=== PATIENT | female | born 1950 | race Caucasian/White ===

== ENCOUNTER 2018-08-21 14:16 | Inpatient (IN) | payer OTHER ==
[~2018-08-21 14:16] MED LIST: FENOFIBRATE 145 MG TAB PO
[2018-08-21 14:47] LABS: ADD MAN DIFF? NO
[2018-08-21 14:49] LABS: BASOPHIL # 0.1 10^3/ul (0.0-0.1); BASOPHILS % 0.6 % (0.0-2.0); EOSINOPHILS % 0.2 % (0.0-7.0); HEMATOCRIT 40.2 % (37.0-47.0); HEMOGLOBIN 13.8 g/dl (12.0-16.0); LYMPHOCYTES # 0.8 10^3/ul (0.8-2.9); LYMPHOCYTES % 9.3 % (15.0-51.0); MEAN CORPUSCULAR HEMOGLOBIN 29.9 pg (29.0-33.0); MEAN CORPUSCULAR HGB CONC 34.3 g/dl (32.0-37.0); MEAN PLATELET VOLUME 10.2 fl (7.4-10.4); MONOCYTE # 0.1 10^3/ul (0.3-0.9); MONOCYTES % 1.7 % (0.0-11.0); NEUTROPHIL # 7.3 10^3/ul (1.6-7.5); NEUTROPHILS % 87.8 % (39.0-77.0); PLATELET COUNT 281 10^3/UL (140-415); RED BLOOD COUNT 4.62 10^6/ul (4.20-5.40); RED CELL DISTRIBUTION WIDTH 12.1 % (11.5-14.5)
[2018-08-21 14:49] LABS: WHITE BLOOD COUNT 8.3 10^3/ul (4.8-10.8)
[2018-08-21] MEDS: SODIUM CHLORIDE 0.9% 1L BAG IV* (14:51)
[2018-08-21] MEDS: CEFEPIME 2GM/50 ML (PMX) 50 ML IVPB (15:01)
[2018-08-21] MEDS: ACETAMINOPHEN 325 MG TAB PO (15:01)
[2018-08-21 15:08] LABS: INR 0.94; PROTIME 12.7 Sec (11.9-14.9)
[2018-08-21 15:09] LABS: PARTIAL THROMBOPLASTIN TIME 44.9 Sec (23.0-35.0)
[2018-08-21 15:14] LABS: LIPASE 163 U/L (23-300)
[2018-08-21 15:14] LABS: ALANINE AMINOTRANSFERASE 26 IU/L (13-69); ALBUMIN 4.7 g/dl (3.3-4.9); ALBUMIN/GLOBULIN RATIO 1.27; ALKALINE PHOSPHATASE 97 IU/L (42-121); ANION GAP 19 (5-13); ASPARTATE AMINO TRANSFERASE 45 IU/L (15-46); BILIRUBIN,INDIRECT 0.4 mg/dl (0-1.1); BILIRUBIN,TOTAL 0.4 mg/dl (0.2-1.3); BLOOD UREA NITROGEN 12 mg/dl (7-20); CALCIUM 10.8 mg/dl (8.4-10.2); CARBON DIOXIDE 21 mmol/L (21-31); CHLORIDE 95 mmol/L (97-110); CREATININE 0.79 mg/dl (0.44-1.00); Estimated GFR > 60 mL/min (>60); GLUCOSE 269 mg/dl (70-220); POTASSIUM 3.7 mmol/L (3.5-5.1); SODIUM 135 mmol/L (135-144); TOTAL PROTEIN 8.4 g/dl (6.1-8.1)
[2018-08-21 15:24] LABS: TROPONIN-I < 0.012 ng/ml (0.000-0.120)
[2018-08-21 15:41] LABS: ADD UMIC YES; UR ASCORBIC ACID 40 mg/dL (NEGATIVE); UR BACTERIA FEW /HPF (NONE SEEN); UR BILIRUBIN (Dip) NEGATIVE (NEGATIVE); UR BLOOD (Dip) NEGATIVE (NEGATIVE); UR CLARITY SLIGHTLY CLOUDY (CLEAR); UR COLOR YELLOW (YELLOW); UR GLUCOSE (Dip) 2+ mg/dL (NEGATIVE); UR KETONES (Dip) TRACE mg/dL (NEGATIVE); UR LEUKOCYTE ESTERASE (Dip) 2+ Leu/ul (NEGATIVE); UR NITRITE (Dip) NEGATIVE (NEGATIVE); UR RBC 6 /HPF (0-5); UR SPECIFIC GRAVITY (Dip) 1.014 (1.003-1.030); UR TOTAL PROTEIN (Dip) 1+ mg/dl (NEGATIVE); UR UROBILINOGEN (Dip) NEGATIVE (NEGATIVE); UR WBC 93 /HPF (0-5)
[2018-08-21] MEDS: VANCOMYCIN 1 GM (PMX) 250 ML IVPB (15:46)
[2018-08-21] MEDS ORDERED: DEXTROSE 50% 50 ML SYRINGE IV ×2 (16:30)
[2018-08-21] MEDS ORDERED: GLUCAGON 1 MG INJ IM (16:30)
[2018-08-21] MEDS ORDERED: ONDANSETRON 4 MG INJ IV ×2 (16:30)
[2018-08-21] MEDS ORDERED: GLUCOSE GEL 15 GRAM TUBE BUCCAL (16:30)
[2018-08-21] MEDS ORDERED: NITROGLYCERIN (SL) 0.4 MG TAB SL (16:30)
[2018-08-21] MEDS ORDERED: LORAZEPAM 2 MG INJ IV (16:30)
[2018-08-21] MEDS ORDERED: GLUCOSE GEL 15 GRAM TUBE PO ×2 (16:30)
[2018-08-21] MEDS ORDERED: NACL 0.9% 3 ML SYG IV (16:30)
[2018-08-21] MEDS ORDERED: ACETAMINOPHEN 325 MG TAB PO ×2 (16:30)
[2018-08-21] MEDS ORDERED: hydrALAzine 20 MG INJ IV (16:30)
[2018-08-21] MEDS ORDERED: DOCUSATE SODIUM 100 MG CAP PO (16:30)
[2018-08-21] MEDS ORDERED: ALBUTEROL/IPRATROPIUM (NEB) 3 ML AMP HHN (16:30)
[2018-08-21 17:56] LABS: LACTIC ACID 3.1 mmol/L (0.5-2.0)
[2018-08-21 20:26] LABS: FREE T4 (FREE THYROXINE) 1.58 ng/dl (0.78-2.44)
[2018-08-21] MEDS: SOD CHLORIDE 0.9% 1,000 ML IV (22:21)
[2018-08-21] MEDS: HEPARIN 5,000 UNIT/1 ML VIAL SC (22:23)
[2018-08-21] MEDS: INSULIN ASPART [NOVOLOG] 3 ML PEN SC (23:22)
[2018-08-21 23:29] LABS: LACTIC ACID 2.1 mmol/L (0.5-2.0)
[2018-08-22 01:51] LABS: LACTIC ACID 1.7 mmol/L (0.5-2.0)
[2018-08-22] MEDS: CEFEPIME 2GM/50 ML (PMX) 50 ML IVPB ×3 (01:54→21:26)
[2018-08-22] MEDS: INSULIN ASPART [NOVOLOG] 3 ML PEN SC ×6 (02:05→21:30)
[2018-08-22] MEDS: ACCU-CHEK XX (02:06)
[2018-08-22] MEDS: SOD CHLORIDE 0.9% 1,000 ML IV ×2 (04:09→16:21)
[2018-08-22] MEDS: PANTOPRAZOLE 40 MG INJ IV (05:33)
[2018-08-22] MEDS: PIPER-TAZO 3.375 GM IV (PMX) 100 ML IVPB ×3 (06:10→21:26)
[2018-08-22 06:14] LABS: ADD MAN DIFF? NO
[2018-08-22 06:19] LABS: WHITE BLOOD COUNT 13.7 10^3/ul (4.8-10.8)
[2018-08-22 06:19] LABS: BASOPHIL # 0.1 10^3/ul (0.0-0.1); BASOPHILS % 0.8 % (0.0-2.0); EOSINOPHILS # 0.3 10^3/ul (0.0-0.5); EOSINOPHILS % 1.9 % (0.0-7.0); HEMATOCRIT 34.4 % (37.0-47.0); HEMOGLOBIN 11.5 g/dl (12.0-16.0); LYMPHOCYTES # 1.3 10^3/ul (0.8-2.9); LYMPHOCYTES % 9.7 % (15.0-51.0); MEAN CORPUSCULAR HEMOGLOBIN 29.7 pg (29.0-33.0); MEAN CORPUSCULAR HGB CONC 33.4 g/dl (32.0-37.0); MEAN CORPUSCULAR VOLUME 88.9 fl (82.0-101.0); MEAN PLATELET VOLUME 10.4 fl (7.4-10.4); MONOCYTE # 0.9 10^3/ul (0.3-0.9); MONOCYTES % 6.6 % (0.0-11.0); NEUTROPHIL # 11.1 10^3/ul (1.6-7.5); NEUTROPHILS % 80.4 % (39.0-77.0); PLATELET COUNT 284 10^3/UL (140-415); RED BLOOD COUNT 3.87 10^6/ul (4.20-5.40); RED CELL DISTRIBUTION WIDTH 12.4 % (11.5-14.5)
[2018-08-22 07:00] LABS: CHOL/HDL RATIO 3.2 RATIO; HDL CHOLESTEROL 32 mg/dl (33-92); LDL CHOLESTEROL,CALCULATED 35 mg/dl; TRIGLYCERIDES 192 mg/dl (0-149)
[2018-08-22 07:00] LABS: CHOLESTEROL 105 mg/dl (100-200)
[2018-08-22 07:01] LABS: ANION GAP 9 (5-13); BLOOD UREA NITROGEN 9 mg/dl (7-20); CARBON DIOXIDE 27 mmol/L (21-31); CHLORIDE 105 mmol/L (97-110); CREATININE 0.61 mg/dl (0.44-1.00); Estimated GFR > 60 mL/min (>60); GLUCOSE 203 mg/dl (70-220); MAGNESIUM 1.3 mg/dl (1.7-2.5); POTASSIUM 3.3 mmol/L (3.5-5.1); SODIUM 141 mmol/L (135-144)
[2018-08-22 07:14] LABS: THYROID STIMULATING HORMONE 0.478 MIU/L (0.465-4.680)
[2018-08-22 07:41] LABS: HEMOGLOBIN A1C 7.8 % (0-5.9)
[2018-08-22] MEDS ORDERED: PIPER-TAZO 3.375 GM IV (PMX) 100 ML IVPB (08:00)
[2018-08-22] MEDS: FENOFIBRATE 145 MG TAB PO (09:00)
[2018-08-22] MEDS ORDERED: NON-FORMULARY/PATIENT OWN MED (Omeprazole* 40 MG) PO (09:00)
[2018-08-22] MEDS: FISH OIL 1,000 MG CAP PO (09:00)
[2018-08-22] MEDS ORDERED: PROPOFOL 20 ML (12:52)
[2018-08-22] MEDS ORDERED: LIDOCAINE 2% (SDV) 5 ML INJ (12:52)
[2018-08-22] MEDS ORDERED: ROCURONIUM 50 MG INJ (12:52)
[2018-08-22] MEDS ORDERED: FAMOTIDINE 20 MG INJ (13:28)
[2018-08-22] MEDS ORDERED: DEXAMETHASONE 4 MG/ML 5 ML INJ (13:28)
[2018-08-22] MEDS ORDERED: ONDANSETRON 4 MG INJ (13:28)
[2018-08-22] MEDS: BUPIVACAINE 0.25%/EPI (SDV) 30 ML INJ (13:28)
[2018-08-22] MEDS ORDERED: METOPROLOL 5 MG INJ (13:40)
[2018-08-22] MEDS ORDERED: LABETALOL HCL 20MG INJ (14:07)
[2018-08-22] MEDS ORDERED: hydrALAzine 20 MG INJ (14:14)
[2018-08-22] MEDS ORDERED: GLYCOPYRROLATE 0.4 MG INJ (14:43)
[2018-08-22] MEDS ORDERED: NEOSTIGMINE 3 MG/3 ML SYRINGE (14:43)
[2018-08-22] MEDS ORDERED: SUGAMMADEX SODIUM 200 MG/2 ML VIAL IV (15:25)
[2018-08-22] MEDS: morphine 2 MG INJ IV ×2 (15:56→20:06)
[2018-08-22] MEDS ORDERED: HYDROmorphONE 0.5 MG/0.5 ML SYG IV (16:00)
[2018-08-22] MEDS ORDERED: ONDANSETRON 4 MG INJ IV (16:00)
[2018-08-22] MEDS ORDERED: METOCLOPRAMIDE 10 MG INJ IV ×2 (16:00)
[2018-08-22] MEDS ORDERED: CEPASTAT LOZENGE MT (16:00)
[2018-08-22] MEDS ORDERED: DIPHENHYDRAMINE 50 MG INJ IV (16:00)
[2018-08-22] MEDS ORDERED: FENTAnyl 50 MCG/ML VIAL IV ×2 (16:00)
[2018-08-22] MEDS ORDERED: HYDROmorphONE 1 MG/5 ML IV SYRINGE IV (16:00)
[2018-08-22] MEDS: HYDROmorphONE 1 MG/5 ML IV SYRINGE IV (16:07)
[2018-08-22] MEDS ORDERED: MEPERIDINE 25 MG INJ (16:09)
[2018-08-22] MEDS: LABETALOL HCL 20MG INJ IV ×2 (16:10→16:35)
[2018-08-22] MEDS: MAGNESIUM SULFATE 3 GM in DEXTROSE 5% 100 ML IVPB (16:15)
[2018-08-22] MEDS: hydrALAzine 20 MG INJ IV (16:29)
[2018-08-22] MEDS: MEPERIDINE 25 MG INJ IV (16:31)
[2018-08-22] MEDS: POTASSIUM PHOSPHATE 40 MEQ in SOD CHLORIDE 0.9% 250 ML IVPB (17:33)
[2018-08-22] MEDS: LACTATED RINGER'S 1,000 ML IV (17:34)
[2018-08-22] MEDS: INSULIN GLARGINE [LANTus] (100 UNITS/ML) SYG SC ×2 (18:00→20:00)
[2018-08-22] MEDS ORDERED: INSULIN GLARGINE [LANTus] (100 UNITS/ML) SYG SC (20:00)
[2018-08-22] MEDS: HEPARIN 5,000 UNIT/1 ML VIAL SC (21:33)
[2018-08-22] MEDS: HYDROCODONE/APAP (5/325) TAB PO (21:50)
[2018-08-23] MEDS: INSULIN ASPART [NOVOLOG] 3 ML PEN SC ×6 (00:29→21:00)
[2018-08-23] MEDS: PIPER-TAZO 3.375 GM IV (PMX) 100 ML IVPB ×5 (00:33→23:47)
[2018-08-23] MEDS: morphine 2 MG INJ IV (00:39)
[2018-08-23] MEDS: LACTATED RINGER'S 1,000 ML IV (01:47)
[2018-08-23] MEDS: ACCU-CHEK XX (02:27)
[2018-08-23] MEDS: ACETAMINOPHEN 325 MG TAB PO (02:42)
[2018-08-23] MEDS: PANTOPRAZOLE 40 MG INJ IV (05:30)
[2018-08-23] MEDS: HYDROCODONE/APAP (5/325) TAB PO ×3 (05:31→22:01)
[2018-08-23 07:46] LABS: ABNORMAL IP MESSAGE 1; HEMATOCRIT 33.1 % (37.0-47.0); MEAN CORPUSCULAR HEMOGLOBIN 29.3 pg (29.0-33.0); MEAN CORPUSCULAR HGB CONC 33.2 g/dl (32.0-37.0); MEAN CORPUSCULAR VOLUME 88.3 fl (82.0-101.0); MEAN PLATELET VOLUME 10.3 fl (7.4-10.4); PLATELET COUNT 266 10^3/UL (140-415); RED BLOOD COUNT 3.75 10^6/ul (4.20-5.40); RED CELL DISTRIBUTION WIDTH 12.9 % (11.5-14.5)
[2018-08-23 07:46] LABS: WHITE BLOOD COUNT 17.1 10^3/ul (4.8-10.8)
[2018-08-23 07:51] LABS: ADD MAN DIFF? YES; POSITIVE DIFF @See below
[2018-08-23 07:58] LABS: MAGNESIUM 1.7 mg/dl (1.7-2.5)
[2018-08-23 07:58] LABS: PHOSPHORUS 3.3 mg/dl (2.5-4.9)
[2018-08-23] MEDS: FISH OIL 1,000 MG CAP PO (08:00)
[2018-08-23] MEDS: FENOFIBRATE 145 MG TAB PO (08:01)
[2018-08-23] MEDS: HEPARIN 5,000 UNIT/1 ML VIAL SC ×2 (08:03→21:58)
[2018-08-23 08:05] LABS: ALANINE AMINOTRANSFERASE 80 IU/L (13-69); ALBUMIN 3.3 g/dl (3.3-4.9); ALBUMIN/GLOBULIN RATIO 1.17; ALKALINE PHOSPHATASE 45 IU/L (42-121); ANION GAP 11 (5-13); ASPARTATE AMINO TRANSFERASE 98 IU/L (15-46); BILIRUBIN,INDIRECT 0.3 mg/dl (0-1.1); BILIRUBIN,TOTAL 0.3 mg/dl (0.2-1.3); BLOOD UREA NITROGEN 10 mg/dl (7-20); CALCIUM 7.6 mg/dl (8.4-10.2); CARBON DIOXIDE 22 mmol/L (21-31); CHLORIDE 104 mmol/L (97-110); CREATININE 0.56 mg/dl (0.44-1.00); Estimated GFR > 60 mL/min (>60); GLUCOSE 270 mg/dl (70-220); POTASSIUM 3.1 mmol/L (3.5-5.1); SODIUM 137 mmol/L (135-144); TOTAL PROTEIN 6.1 g/dl (6.1-8.1)
[2018-08-23] MEDS: CEFEPIME 2GM/50 ML (PMX) 50 ML IVPB (08:10)
[2018-08-23 08:23] LABS: BAND NEUTROPHILS #M 3.9 10^3/ul (0.0-0.6); BAND NEUTROPHILS % (M) 23 % (0-4); LYMPHOCYTES #M 1.3 10^3/ul (0.8-2.9); LYMPHOCYTES % (M) 8 % (15-51); MONOCYTE #M 0.8 10^3/ul (0.3-0.9); MONOCYTES % (M) 5 % (0-11); PLATELET ESTIMATE NORMAL; SEG NEUT #M 11.6 10^3/ul (1.6-7.5); SEGMENTED NEUTROPHILS (M) % 64 % (39-77); SMUDGE%M 6 % (0-0)
[2018-08-23] MEDS: ONDANSETRON 4 MG INJ IV (09:52)
[2018-08-23] MEDS: ZOLPIDEM 5 MG TAB PO (21:57)
[2018-08-23] MEDS: INSULIN GLARGINE [LANTus] (100 UNITS/ML) SYG SC (21:59)
[2018-08-24] MEDS ORDERED: ACCU-CHEK XX (02:00)
[2018-08-24] MEDS: ACCU-CHEK XX (02:00)
[2018-08-24] MEDS: PANTOPRAZOLE 40 MG INJ IV (05:42)
[2018-08-24] MEDS: PIPER-TAZO 3.375 GM IV (PMX) 100 ML IVPB ×2 (05:42→12:08)
[2018-08-24] MEDS: HYDROCODONE/APAP (5/325) TAB PO ×3 (05:51→21:55)
[2018-08-24 07:38] LABS: ADD MAN DIFF? NO
[2018-08-24 07:46] LABS: WHITE BLOOD COUNT 15.3 10^3/ul (4.8-10.8)
[2018-08-24 07:46] LABS: BASOPHIL # 0.1 10^3/ul (0.0-0.1); BASOPHILS % 0.3 % (0.0-2.0); EOSINOPHILS # 0.1 10^3/ul (0.0-0.5); EOSINOPHILS % 0.5 % (0.0-7.0); HEMATOCRIT 30.3 % (37.0-47.0); HEMOGLOBIN 10.3 g/dl (12.0-16.0); LYMPHOCYTES # 1.8 10^3/ul (0.8-2.9); LYMPHOCYTES % 11.9 % (15.0-51.0); MEAN CORPUSCULAR HEMOGLOBIN 29.7 pg (29.0-33.0); MEAN CORPUSCULAR VOLUME 87.3 fl (82.0-101.0); MEAN PLATELET VOLUME 10.4 fl (7.4-10.4); MONOCYTES % 6.8 % (0.0-11.0); NEUTROPHIL # 12.2 10^3/ul (1.6-7.5); NEUTROPHILS % 79.6 % (39.0-77.0); PLATELET COUNT 264 10^3/UL (140-415); RED BLOOD COUNT 3.47 10^6/ul (4.20-5.40); RED CELL DISTRIBUTION WIDTH 12.7 % (11.5-14.5)
[2018-08-24] MEDS: INSULIN ASPART [NOVOLOG] 3 ML PEN SC ×7 (08:00→20:25)
[2018-08-24 08:08] LABS: ANION GAP 9 (5-13); BLOOD UREA NITROGEN 9 mg/dl (7-20); CALCIUM 8.1 mg/dl (8.4-10.2); CARBON DIOXIDE 25 mmol/L (21-31); CHLORIDE 106 mmol/L (97-110); CREATININE 0.52 mg/dl (0.44-1.00); Estimated GFR > 60 mL/min (>60); GLUCOSE 139 mg/dl (70-220); SODIUM 140 mmol/L (135-144)
[2018-08-24 08:12] LABS: POTASSIUM 2.7 mmol/L (3.5-5.1)
[2018-08-24] MEDS: FISH OIL 1,000 MG CAP PO (08:54)
[2018-08-24] MEDS: POTASSIUM CHLORIDE (SR) 20 MEQ TAB PO ×2 (08:54→12:09)
[2018-08-24] MEDS: FENOFIBRATE 145 MG TAB PO (08:55)
[2018-08-24] MEDS: HEPARIN 5,000 UNIT/1 ML VIAL SC ×2 (08:58→20:25)
[2018-08-24] MEDS: ERTAPENEM SODIUM 1 GM in SOD CHLORIDE 0.9% 100 ML IVPB (16:40)
[2018-08-24] MEDS: morphine 2 MG INJ IV (16:51)
[2018-08-24] MEDS: INSULIN GLARGINE [LANTus] (100 UNITS/ML) SYG SC (20:25)
[2018-08-25] MEDS: ACCU-CHEK XX (02:00)
[2018-08-25] MEDS: PANTOPRAZOLE 40 MG INJ IV (05:40)
[2018-08-25] MEDS: HYDROCODONE/APAP (5/325) TAB PO ×3 (05:45→19:58)
[2018-08-25 06:20] LABS: ADD MAN DIFF? NO
[2018-08-25 06:26] LABS: WHITE BLOOD COUNT 16.1 10^3/ul (4.8-10.8)
[2018-08-25 06:26] LABS: BASOPHIL # 0.1 10^3/ul (0.0-0.1); BASOPHILS % 0.6 % (0.0-2.0); EOSINOPHILS # 0.2 10^3/ul (0.0-0.5); EOSINOPHILS % 1.2 % (0.0-7.0); HEMATOCRIT 31.9 % (37.0-47.0); HEMOGLOBIN 10.7 g/dl (12.0-16.0); LYMPHOCYTES # 2.4 10^3/ul (0.8-2.9); LYMPHOCYTES % 15.2 % (15.0-51.0); MEAN CORPUSCULAR HEMOGLOBIN 29.6 pg (29.0-33.0); MEAN CORPUSCULAR HGB CONC 33.5 g/dl (32.0-37.0); MEAN CORPUSCULAR VOLUME 88.1 fl (82.0-101.0); MEAN PLATELET VOLUME 10.2 fl (7.4-10.4); MONOCYTE # 1.3 10^3/ul (0.3-0.9); MONOCYTES % 8.2 % (0.0-11.0); NEUTROPHIL # 11.9 10^3/ul (1.6-7.5); NEUTROPHILS % 73.9 % (39.0-77.0); PLATELET COUNT 325 10^3/UL (140-415); RED BLOOD COUNT 3.62 10^6/ul (4.20-5.40); RED CELL DISTRIBUTION WIDTH 12.7 % (11.5-14.5)
[2018-08-25 06:46] LABS: MAGNESIUM 1.9 mg/dl (1.7-2.5)
[2018-08-25 06:46] LABS: PHOSPHORUS 1.6 mg/dl (2.5-4.9)
[2018-08-25 06:53] LABS: ALANINE AMINOTRANSFERASE 67 IU/L (13-69); ALBUMIN 3.2 g/dl (3.3-4.9); ALBUMIN/GLOBULIN RATIO 0.96; ALKALINE PHOSPHATASE 97 IU/L (42-121); ANION GAP 7 (5-13); ASPARTATE AMINO TRANSFERASE 53 IU/L (15-46); BILIRUBIN,INDIRECT 0.4 mg/dl (0-1.1); BILIRUBIN,TOTAL 0.4 mg/dl (0.2-1.3); BLOOD UREA NITROGEN 6 mg/dl (7-20); CALCIUM 8.5 mg/dl (8.4-10.2); CARBON DIOXIDE 28 mmol/L (21-31); CHLORIDE 107 mmol/L (97-110); CREATININE 0.48 mg/dl (0.44-1.00); Estimated GFR > 60 mL/min (>60); GLUCOSE 112 mg/dl (70-220); POTASSIUM 3.9 mmol/L (3.5-5.1); SODIUM 142 mmol/L (135-144); TOTAL PROTEIN 6.5 g/dl (6.1-8.1)
[2018-08-25] MEDS: INSULIN ASPART [NOVOLOG] 3 ML PEN SC ×7 (08:00→21:00)
[2018-08-25] MEDS: FENOFIBRATE 145 MG TAB PO (08:07)
[2018-08-25] MEDS: FISH OIL 1,000 MG CAP PO (08:08)
[2018-08-25] MEDS: HEPARIN 5,000 UNIT/1 ML VIAL SC ×2 (08:09→21:07)
[2018-08-25] MEDS: ERTAPENEM SODIUM 1 GM in SOD CHLORIDE 0.9% 100 ML IVPB (16:00)
[2018-08-25] MEDS: LIDOCAINE 1% (MPF) 5 ML VIAL SC (17:30)
[2018-08-25] MEDS: POTASSIUM PHOSPHATE 40 MEQ in SOD CHLORIDE 0.9% 250 ML IVPB (18:19)
[2018-08-25] MEDS: INSULIN GLARGINE [LANTus] (100 UNITS/ML) SYG SC (21:07)
[2018-08-25] MEDS: MAGNESIUM HYDROXIDE 30ML CUP PO (21:09)
[2018-08-25] MEDS: ZOLPIDEM 5 MG TAB PO (21:12)
[2018-08-26] MEDS: ACCU-CHEK XX ×2 (00:08→23:34)
[2018-08-26] MEDS: morphine 2 MG INJ IV ×2 (05:15→20:20)
[2018-08-26] MEDS: PANTOPRAZOLE 40 MG INJ IV (05:15)
[2018-08-26 06:11] LABS: WHITE BLOOD COUNT 15.2 10^3/ul (4.8-10.8)
[2018-08-26 06:11] LABS: ABNORMAL IP MESSAGE 1; HEMATOCRIT 31.9 % (37.0-47.0); HEMOGLOBIN 10.8 g/dl (12.0-16.0); MEAN CORPUSCULAR HEMOGLOBIN 29.6 pg (29.0-33.0); MEAN CORPUSCULAR HGB CONC 33.9 g/dl (32.0-37.0); MEAN CORPUSCULAR VOLUME 87.4 fl (82.0-101.0); MEAN PLATELET VOLUME 9.8 fl (7.4-10.4); NUCLEATED RED BLOOD CELLS% 0.6 /100WBC (0.0-0.0); PLATELET COUNT 412 10^3/UL (140-415); RED BLOOD COUNT 3.65 10^6/ul (4.20-5.40)
[2018-08-26 06:32] LABS: ADD MAN DIFF? YES; POSITIVE DIFF @See below
[2018-08-26 06:41] LABS: MAGNESIUM 1.7 mg/dl (1.7-2.5)
[2018-08-26 06:41] LABS: PHOSPHORUS 2.2 mg/dl (2.5-4.9)
[2018-08-26 06:43] LABS: ANION GAP 12 (5-13); BLOOD UREA NITROGEN 6 mg/dl (7-20); CALCIUM 8.7 mg/dl (8.4-10.2); CARBON DIOXIDE 25 mmol/L (21-31); CHLORIDE 105 mmol/L (97-110); CREATININE 0.52 mg/dl (0.44-1.00); Estimated GFR > 60 mL/min (>60); GLUCOSE 132 mg/dl (70-220); POTASSIUM 3.6 mmol/L (3.5-5.1); SODIUM 142 mmol/L (135-144)
[2018-08-26] MEDS: INSULIN ASPART [NOVOLOG] 3 ML PEN SC ×7 (08:00→20:17)
[2018-08-26] MEDS: HYDROCODONE/APAP (5/325) TAB PO ×2 (08:25→18:52)
[2018-08-26] MEDS: FISH OIL 1,000 MG CAP PO (08:30)
[2018-08-26] MEDS: FENOFIBRATE 145 MG TAB PO (08:30)
[2018-08-26] MEDS: HEPARIN 5,000 UNIT/1 ML VIAL SC ×2 (08:33→20:19)
[2018-08-26 11:22] LABS: BAND NEUTROPHILS #M 0.1 10^3/ul (0.0-0.6); BAND NEUTROPHILS % (M) 1 % (0-4); BASOPHIL #M 0.1 10^3/ul (0.0-0.0); BASOPHILS % (M) 1 % (0-2); BURR CELLS 2+ (0-0); EOSINOPHILS % (M) 2 % (0-7); ERYTHROBLAST% (NRBC) (M) 2 % (0-0); GIANT THROMBO% (M) 1 % (0-0); LYMPHOCYTES #M 2.5 10^3/ul (0.8-2.9); LYMPHOCYTES % (M) 17 % (15-51); METAMYELOCYTES #M 0.1 10^3/ul (0.0-0.0); METAMYELOCYTES %M 1 % (0-0); MONOCYTE #M 1.2 10^3/ul (0.3-0.9); MONOCYTES % (M) 8 % (0-11); PLATELET ESTIMATE NORMAL; POIKILOCYTOSIS 1+ (0-0); POLYCHROMASIA 1+ (0-0); PROMYELOCYTES #M 0.1 10^3/ul (0-0); PROMYELOCYTES % (M) 1 % (0-0); REACTIVE LYMPHOCYTES #M 1.5 10^3/ul (0.0-0.0); REACTIVE LYMPHOCYTES% (M) 10 % (0-0); SEG NEUT #M 9.3 10^3/ul (1.6-7.5); SEGMENTED NEUTROPHILS (M) % 61 % (39-77); SMUDGE%M 19 % (0-0); TARGET CELLS 1+ (0-0)
[2018-08-26] MEDS: POTASSIUM PHOSPHATE 40 MEQ in SOD CHLORIDE 0.9% 250 ML IVPB (13:58)
[2018-08-26] MEDS: ERTAPENEM SODIUM 1 GM in SOD CHLORIDE 0.9% 100 ML IVPB (18:46)
[2018-08-26] MEDS: INSULIN GLARGINE [LANTus] (100 UNITS/ML) SYG SC (20:18)
[2018-08-26] MEDS: ZOLPIDEM 5 MG TAB PO (22:26)
[2018-08-27] MEDS: HYDROCODONE/APAP (5/325) TAB PO (01:55)
[2018-08-27] MEDS: PANTOPRAZOLE 40 MG INJ IV (06:13)
[2018-08-27 06:16] LABS: HEMATOCRIT 31.7 % (37.0-47.0); HEMOGLOBIN 10.8 g/dl (12.0-16.0); MEAN CORPUSCULAR HEMOGLOBIN 29.3 pg (29.0-33.0); MEAN CORPUSCULAR HGB CONC 34.1 g/dl (32.0-37.0); MEAN CORPUSCULAR VOLUME 85.9 fl (82.0-101.0); MEAN PLATELET VOLUME 9.6 fl (7.4-10.4); NUCLEATED RED BLOOD CELLS% 1.6 /100WBC (0.0-0.0); PLATELET COUNT 466 10^3/UL (140-415); RED BLOOD COUNT 3.69 10^6/ul (4.20-5.40); RED CELL DISTRIBUTION WIDTH 13.2 % (11.5-14.5)
[2018-08-27 06:16] LABS: WHITE BLOOD COUNT 11.4 10^3/ul (4.8-10.8)
[2018-08-27 06:21] LABS: POSITIVE DIFF @See below
[2018-08-27 06:22] LABS: ADD MAN DIFF? YES
[2018-08-27 06:31] LABS: MAGNESIUM 1.8 mg/dl (1.7-2.5)
[2018-08-27 06:31] LABS: PHOSPHORUS 3.3 mg/dl (2.5-4.9)
[2018-08-27 07:02] LABS: ANION GAP 9 (5-13); BLOOD UREA NITROGEN 5 mg/dl (7-20); CALCIUM 8.9 mg/dl (8.4-10.2); CARBON DIOXIDE 27 mmol/L (21-31); CHLORIDE 106 mmol/L (97-110); CREATININE 0.47 mg/dl (0.44-1.00); Estimated GFR > 60 mL/min (>60); GLUCOSE 148 mg/dl (70-220); POTASSIUM 3.4 mmol/L (3.5-5.1); SODIUM 142 mmol/L (135-144)
[2018-08-27] MEDS: INSULIN ASPART [NOVOLOG] 3 ML PEN SC ×4 (08:00→12:32)
[2018-08-27 08:50] LABS: BAND NEUTROPHILS #M 1.1 10^3/ul (0.0-0.6); BAND NEUTROPHILS % (M) 10 % (0-4); BASOPHIL #M 0.2 10^3/ul (0.0-0.0); BASOPHILS % (M) 2 % (0-2); EOSINOPHILS % (M) 5 % (0-7); ERYTHROBLAST% (NRBC) (M) 1 % (0-0); LYMPHOCYTES #M 2.5 10^3/ul (0.8-2.9); LYMPHOCYTES % (M) 22 % (15-51); METAMYELOCYTES #M 0.2 10^3/ul (0.0-0.0); METAMYELOCYTES %M 2 % (0-0); MONOCYTE #M 1.1 10^3/ul (0.3-0.9); MONOCYTES % (M) 10 % (0-11); PLASMA CELLS #M 0.2 10^3/ul (0.0-0.0); PLASMAC%(M) 2 % (0); PLATELET ESTIMATE INCREASED; POLYCHROMASIA 2+ (0-0); SEG NEUT #M 5.5 10^3/ul (1.6-7.5); SEGMENTED NEUTROPHILS (M) % 47 % (39-77); SMUDGE%M 2 % (0-0)
[2018-08-27] MEDS: HEPARIN 5,000 UNIT/1 ML VIAL SC (08:54)
[2018-08-27] MEDS: FISH OIL 1,000 MG CAP PO (09:04)
[2018-08-27] MEDS: FENOFIBRATE 145 MG TAB PO (09:04)
[2018-08-27] MEDS: ERTAPENEM SODIUM 1 GM in SOD CHLORIDE 0.9% 100 ML IVPB (16:17)
== END 2018-08-27 17:46 | disposition home or self-care (01) | DRG 854 ==
LOC: E/R 14:16 → PP2 16:06
PROVIDERS: Hospitalist
PROC: 0FT44ZZ Resection of Gallbladder, Percutaneous Endoscopic Approach (ICD-10-PCS; principal; 2018-08-22 12:51)
DX: A41.51 Sepsis due to Escherichia coli [E. coli] (principal); N39.0 Urinary tract infection, site not specified; K82.1 Hydrops of gallbladder; K80.00 Calculus of gallbladder with acute cholecystitis without obstruction; Q44.7 Other congenital malformations of liver; E11.9 Type 2 diabetes mellitus without complications; I10 Essential (primary) hypertension; E78.00 Pure hypercholesterolemia, unspecified; K21.9 Gastro-esophageal reflux disease without esophagitis
CPT/HCPCS: 36415; 71045; 76705; 78226; 80048; 80053; 80061; 81001; 82962; 83036; 83605; 83690; 83735; 84100; 84439; 84443; 84484; 85025; 85610; 85730; 87040-91; 87070; 87075; 87086; 87400; 88304; 92610; 93005; 96361; 96365; 96367; 97110; 97116; 97162; 97530; 99285-25

== ENCOUNTER 2018-09-13 16:36 | Emergency (ER) | payer OTHER ==
[2018-09-13] MEDS: LIDOCAINE/MYLANTA 40 ML BTL PO (17:23)
[2018-09-13] MEDS: FAMOTIDINE 20 MG TAB PO (17:23)
[2018-09-13] MEDS: DICYCLOMINE 10 MG CAP PO (17:23)
[2018-09-13 17:36] LABS: HEMATOCRIT 40.3 % (37.0-47.0); HEMOGLOBIN 13.1 g/dl (12.0-16.0); MEAN CORPUSCULAR HEMOGLOBIN 29.7 pg (29.0-33.0); MEAN CORPUSCULAR HGB CONC 32.5 g/dl (32.0-37.0); MEAN CORPUSCULAR VOLUME 91.4 fl (82.0-101.0); MEAN PLATELET VOLUME 9.4 fl (7.4-10.4); PLATELET COUNT 526 10^3/UL (140-415); RED BLOOD COUNT 4.41 10^6/ul (4.20-5.40); RED CELL DISTRIBUTION WIDTH 14.4 % (11.5-14.5)
[2018-09-13 17:36] LABS: WHITE BLOOD COUNT 8.9 10^3/ul (4.8-10.8)
[2018-09-13 17:41] LABS: ADD MAN DIFF? YES; POSITIVE DIFF @See below
[2018-09-13 17:50] LABS: ALANINE AMINOTRANSFERASE 19 IU/L (13-69); ALBUMIN 4.5 g/dl (3.3-4.9); ALBUMIN/GLOBULIN RATIO 1.21; ALKALINE PHOSPHATASE 86 IU/L (42-121); ANION GAP 13 (5-13); ASPARTATE AMINO TRANSFERASE 28 IU/L (15-46); BILIRUBIN,INDIRECT 0.4 mg/dl (0-1.1); BILIRUBIN,TOTAL 0.4 mg/dl (0.2-1.3); BLOOD UREA NITROGEN 8 mg/dl (7-20); CALCIUM 10.7 mg/dl (8.4-10.2); CARBON DIOXIDE 27 mmol/L (21-31); CHLORIDE 102 mmol/L (97-110); CREATININE 0.57 mg/dl (0.44-1.00); Estimated GFR > 60 mL/min (>60); GLUCOSE 181 mg/dl (70-220); LIPASE 417 U/L (23-300); POTASSIUM 3.7 mmol/L (3.5-5.1); SODIUM 142 mmol/L (135-144); TOTAL PROTEIN 8.2 g/dl (6.1-8.1)
[2018-09-13 18:12] LABS: EOSINOPHILS % (M) 2 % (0-7); LYMPHOCYTES #M 3.9 10^3/ul (0.8-2.9); LYMPHOCYTES % (M) 44 % (15-51); MONOCYTE #M 0.5 10^3/ul (0.3-0.9); MONOCYTES % (M) 6 % (0-11); PLATELET ESTIMATE NORMAL; SEGMENTED NEUTROPHILS (M) % 48 % (39-77); SMUDGE%M 2 % (0-0)
== END 2018-09-13 18:59 | disposition home or self-care (01) ==
LOC: E/R 18:59
DX: R10.13 Epigastric pain (principal); I10 Essential (primary) hypertension; E11.9 Type 2 diabetes mellitus without complications; Z79.84 Long term (current) use of oral hypoglycemic drugs
CPT/HCPCS: 36415; 80053; 83690; 85025; 99283